=== PATIENT | female | born 1995 | race Caucasian/White ===

== ENCOUNTER 2017-11-04 08:44 | Day surgery (SDC) | payer OTHER ==
[~2017-11-04 08:44] MED LIST: PROPOFOL INJ 200 MG/20 ML VIAL IV ONE
[2017-11-04] MEDS ORDERED: PROMETHAZINE HCL INJ 25 MG/1 ML VIAL IV PRN ×3 (11:24→11:51)
[2017-11-04] MEDS ORDERED: DIPHENHYDRAMINE HCL 50 MG/ML VIAL IV PRN (11:24)
[2017-11-04] MEDS ORDERED: FENTANYL CITRATE INJ/PF 100 MCG/2 ML AMPUL IV PRN ×3 (11:24)
[2017-11-04] MEDS ORDERED: MEPERIDINE HCL/PF INJ 25 MG/1 ML DISP.SYRIN IV PRN (11:24)
[2017-11-04] MEDS ORDERED: ACETAMINOPHEN 325 MG TABLET PO PRN (11:51)
[2017-11-04] MEDS ORDERED: SIMETHICONE 80 MG TAB.CHEW PO PRN (11:51)
--- NOTE | 2017-11-04 12:30 | Operative Report ---
Operative Report DATE OF SURGERY: 11/04/17 Operative Report: The risks, benefits and alternatives of the procedure including risks of bleeding, perforation requiring surgery are explained to the patient in detail and informed consent is obtained. The patient is brought back to the operating room and placed in the left, lateral decubital position. Timeout was called. Propofol medication is administered. A rectal examination is done which did not reveal any masses, tears or fissures. An Olympus videoscope was inserted into the patient's rectum. The scope was then carefully advanced all the way to the cecum. The cecum was identified by the usual anatomical landmarks including the ileocecal valve as well as the appendiceal office. Photodocumentation is obtained. The scope was then sequentially pulled back via the various segments of the colon including the ascending colon, hepatic flexure, transverse colon, splenic flexure, descending colon and finally to the rectosigmoid portions of the colon. Retroflexion maneuvers performed. PREOPERATIVE DIAGNOSIS: Abdominal pain, right lower quadrant rule out Crohn's disease POSTOPERATIVE DIAGNOSIS: Mild terminal ileitis status post biopsy OPERATION: Colonoscopy with biopsy SURGEON: REESE SERRATO ANESTHESIA: LMAC TISSUE REMOVED OR ALTERED: As noted above. COMPLICATIONS: None. ESTIMATED BLOOD LOSS: None. INTRAOPERATIVE FINDINGS: As noted above. PROCEDURE: Patient tolerated procedure well. No immediate postprocedure complications are noted. Patient discharged in good condition. Discharge date 11/04/2017. Discharge diet: Regular. Discharge activity: Regular. 2-3 week follow-up to discuss findings. Patient is instructed to call the office or proceed to the emergency room should there be any further problems or questions. Wait on the pathology.
[2017-11-04 13:17] VITALS: BP 104/70
== END 2017-11-04 12:50 | disposition home or self-care (01) ==
LOC: OROUT 08:44
PROVIDERS: ATTEND Internal Medicine Gastroenterology
DX: K52.9 Noninfective gastroenteritis and colitis, unspecified (principal); D64.9 Anemia, unspecified; J45.909 Unspecified asthma, uncomplicated; Z88.0 Allergy status to penicillin
CPT/HCPCS: 45380; 81025; 88305 ×2; J2704; 811

== ENCOUNTER → 2017-11-25 | Outpatient (CLI) | payer OTHER | LOC: OD 15:07 | PROVIDERS: ATTEND Internal Medicine Gastroenterology | DX: R10.31 Right lower quadrant pain (principal) | CPT/HCPCS: 36415; 85652; 86140 ==

== ENCOUNTER → 2019-12-01 | Outpatient (CLI) | payer OTHER | LOC: OD 12:52 | PROVIDERS: ATTEND Nurse Practitioner Family | DX: R10.31 Right lower quadrant pain (principal); R19.4 Change in bowel habit | CPT/HCPCS: 36415; 85652; 86140 ==

== ENCOUNTER 2019-12-07 07:07 | Day surgery (SDC) | payer OTHER ==
[2019-12-07] MEDS ORDERED: PROPOFOL INJ 200 MG/20 ML VIAL IV ONE ×2 (07:42→08:54)
[2019-12-07] MEDS ORDERED: ONDANSETRON HCL INJ/PF 4 MG/2 ML SDV ONE (08:26)
--- NOTE | 2019-12-07 08:59 | Operative Report ---
Operative Report DATE OF SURGERY: 12/07/19 Operative Report: The risk, benefits and alternatives of the procedure including the risk of bleeding, perforation requiring surgery could be explained to the patient in detail informed consent has been obtained. Patient is placed in left, lateral decubital position. Timeout was called. Propofol medication is administered. Rectal examination is done which did not reveal any masses, tears or fissures. An Olympus videoscope was introduced into the patient's rectum. Scope was then carefully advanced all the way to the cecum. Cecum was identified by the usual anatomical landmarks including the ileocecal valve as well as the appendiceal office. Photodocumentation is obtained. Scope was then sequentially pulled back via the various segments of the colon including the ascending colon, hepatic flexure, transverse colon, splenic flexure, descending colon and finally into the rectosigmoid portions of the colon. Retroflexion maneuvers performed. PREOPERATIVE DIAGNOSIS: Change in bowel habit POSTOPERATIVE DIAGNOSIS: Mild terminal ileitis status post biopsy OPERATION: Colonoscopy with biopsy SURGEON: REESE SERRATO ANESTHESIA: LMAC TISSUE REMOVED OR ALTERED: As noted above. COMPLICATIONS: None. ESTIMATED BLOOD LOSS: None. INTRAOPERATIVE FINDINGS: As noted above. PROCEDURE: Patient tolerated the procedure well. No immediate postprocedure complications are noted. Patient is discharged in good condition. Discharge date 12/07/2019. Discharge diet: Regular. Discharge activity: Regular. 2 to 3-week follow-up to discuss findings. Patient is instructed to call the office or proceed to the emergency room should there be any further problems or questions. Wait on the pathology.
[2019-12-07 09:32] VITALS: BP 107/66
[2019-12-07] MEDS ORDERED: SIMETHICONE 80 MG TAB.CHEW ONE (09:41)
== END 2019-12-07 09:55 | disposition home or self-care (01) ==
LOC: END 07:07
PROVIDERS: ATTEND Internal Medicine Gastroenterology
DX: K50.00 Crohn's disease of small intestine without complications (principal); D64.9 Anemia, unspecified; J45.909 Unspecified asthma, uncomplicated; G43.909 Migraine, unspecified, not intractable, without status migrainosus; Z79.899 Other long term (current) drug therapy; Z88.0 Allergy status to penicillin; Z88.1 Allergy status to other antibiotic agents; Z68.23 Body mass index [BMI] 23.0-23.9, adult
CPT/HCPCS: 45380; 87635; 88305 ×2; 00811; J2405; J2704; C9803; 811